=== PATIENT | male | born 1960 | race Caucasian/White ===

== ENCOUNTER 2016-09-01 16:18 | Emergency (ER) | payer OTHER ==
[2016-09-01 17:18] VITALS: BP 148/92
--- NOTE | 2016-09-01 18:33 | RAD ---
Indication: LEFT heel pain for 3 months increasing with walking downhill. Comparison: None. Technique: AP, lateral, and oblique views LEFT foot. Report: Small Achilles tendon insertion and plantar fascia origin bone spurs. Soft tissue edema at the heel fat pad. Negative for fracture or stress reaction. 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 IMPRESSION: 1. Heel fat pad soft tissue swelling and small plantar fascia origin bone spur; correlate for potential plantar fasciitis. 2. 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
--- NOTE | 2016-09-02 08:07 | UC ---
Coy Ridley Aidan, scribed for Aurelia Gutiérrez MD on 09/01/16 at 1802 . Lower Extremity/Ankle HPI - HPI Summary HPI Summary: 55 y/o male presents to the Urgent Care with a complaint of acute, intermittent episodes of hkomzndh-ia-wwkamw (8/10) left foot pain at the heel that occurs when he walks and applies pressure on his foot. His pain began roughly 3 months ago after walking down a snow-covered hill in firm boots. His pain is worse in the mornings and sometimes radiates to the arch of his foot. He denies any associated fall or injury. He is here today because the foot pain has not subsided. He works on his feet during the day, and pain is worse. No sores, no drainage, no redness. No sx contralateral foot. No fever / chills. No p/dp/w. Checks blood sugars frequently, reports most recent bs 110mg, followed by Dr. Lake. / - History of Current Complaint Chief Complaint: UCLowerExtremity Stated Complaint: FOOT PAIN Time Seen by Provider: 09/01/16 17:48 Hx Obtained From: Patient Onset/Duration: Gradual Onset, Lasting Weeks, Still Present Severity Initially: Moderate Severity Currently: Moderate Pain Intensity: 8 Pain Scale Used: 0-10 Numeric Aggravating Factor(s): Standing, Ambulation Alleviating Factor(s): Other - unknown Able to Bear Weight: Yes - Risk Factors Gout Risk Factors: Age Over 40, Male - Allergies/Home Medications Allergies/Adverse Reactions: Allergies Allergy/AdvReac Type Severity Reaction Status Date / Time No Known Allergies Allergy Verified 09/01/16 17:17 Home Medications: Home Medications Atorvastatin* [Lipitor*] mg PO 1700 09/01/16 [History] Glipizide-Metformin HCl [Glipizide/Metformin HCl 2.5-250 mg] 1 tab PO 09/01/16 [ History] Losartan TAB* [Cozaar TAB*] 25 mg PO DAILY 09/01/16 [History Confirmed 09/01/16] PMH/Surg Hx/FS Hx/Imm Hx Previously Healthy: Yes - dm Endocrine History Of: Reports: Diabetes - Type II 3 years Denies: Thyroid Disease Cardiovascular History Of: Denies: Cardiac Disorders, Hypertension Respiratory History Of: Denies: COPD, Asthma GI/ History Of: Denies: Ulcer - Surgical History Surgical History: None Surgery Procedure, Year, and Place: Denies - Family History Known Family History: Positive: Diabetes - Social History Occupation: Employed Full-time Lives: With Family Alcohol Use: Occasionally Substance Use Type: None Smoking Status (MU): Never Smoked Tobacco - Immunization History Most Recent Influenza Vaccination: fall 2015 Review of Systems Constitutional: Negative Skin: Negative Eyes: Negative ENT: Negative Respiratory: Negative Cardiovascular: Negative Gastrointestinal: Negative Genitourinary: Negative Motor: Negative Neurovascular: Negative Musculoskeletal: Arthralgia - left heel pain that radiates to the arch of the foot Neurological: Negative Psychological: Negative All Other Systems Reviewed And Are Negative: Yes Physical Exam Triage Information Reviewed: Yes Appearance: Well-Nourished Vital Signs: Initial Vital Signs Temp 97.7 F 09/01/16 17:12 Pulse 76 09/01/16 17:12 Resp 16 09/01/16 17:12 BP 148/92 09/01/16 17:12 Pulse Ox 100 09/01/16 17:12 Vital Signs Reviewed: Yes Eye Exam: Normal ENT Exam: Normal Neck exam: Normal Respiratory Exam: Normal, Other - no dyspnea, no tachypnea Cardiovascular Exam: Normal Cardiovascular: Positive: RRR, Other: - regular rate, good capillary refill, good general skin color Abdominal Exam: Normal Abdomen Description: Positive: Nontender, No Organomegaly, Soft Bowel Sounds: Positive: Present Musculoskeletal Exam: Normal, Other - tender L inf calc region, extending through midfoot. Mild swelling. No redness, no crepitus. No sores. CR < 2 sec x 5 toes. Moves toes ok. Dp 1+ Pt 2+, pulses to R foot 2+ both dp/pt. R foot w/o sores, redness, swelling. L foot particularly tender mid plantar calcaneal region. Also tender plantar distal 1st MT head region. Musculoskeletal: Positive: Strength Intact Neurological Exam: Normal, Other - non-focal, grossly intact. see foot below. Psychological Exam: Normal, Other - conversing easily and appropriately Skin Exam: Normal, Other - no visible or reported rash Diagnostics - Radiology FOOT XR Xray Interpretation: Positive (See Comments) - IMPRESSION: 1. Heel fat pad soft tissue swelling and small plantar fascia origin bone spur; correlate for potential plantar fasciitis. 2. 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 Radiology Interpretation Completed By: Radiologist Re-Evaluation - Re-Evaluation First Eval Re-Evaluation Time: 18:51 - Dr. Gutiérrez informed the patient of his positive radiology results Change: Unchanged Lower Extremity Course/Dx - Course Course Of Treatment: No new problems in CCC. Reviewed xray with pt. He has an appointment with a Jewelry Drill Operator early-mid September, but can't remember the name of the hotel general manager. CAM boot given to him here - feels better. Ultimately will benefit from podiatric specific offloading device, is possible. Work note written for this week (he works while standing on his feet). F/u Dr. Lake, per routine. Questions answered to the best of my ability. - Differential Dx/Diagnosis Provider Diagnoses: Heel spur w/ plantar fasciitis. Osteoarthrititis (see xray) Discharge - Discharge Plan Condition: Stable Disposition: HOME Prescriptions: Meloxicam [Mobic] 15 mg PO DAILY PRN #30 tab PRN Reason: Pain Patient Education Materials: Plantar Fasciitis Exercises (GEN), Plantar Fasciitis (ED), Heel Spur (ED) Forms: *Work Release Referrals: Jame Lake MD [Primary Care Provider] - Additional Instructions: Follow up with your Jewelry Drill Operator as scheduled in September. Minimize weight bearing. Follow up with Dr. Lake, per routine - call his office this week to let him know how you are doing. The documentation as recorded by the Coy dinero Aidan accurately reflects the service I personally performed and the decisions made by me, Aurelia Gutiérrez MD.
== END 2016-09-01 20:16 | disposition home or self-care (01) ==
LOC: UCEAST 16:18
DX: M77.32 Calcaneal spur, left foot (principal); M72.2 Plantar fascial fibromatosis; M19.072 Primary osteoarthritis, left ankle and foot; E11.9 Type 2 diabetes mellitus without complications; Z79.84 Long term (current) use of oral hypoglycemic drugs
CPT/HCPCS: 99211; G0463

== ENCOUNTER → 2018-11-26 06:20 | Day surgery (SDC) | payer OTHER ==
--- NOTE | 2018-11-13 14:50 | HP ---
Amended report to enter cosigning physician. PREOPERATIVE HISTORY AND PHYSICAL: DATE OF SURGERY/ADMISSION: 11/26/18 DATE OF OFFICE VISIT/ENCOUNTER: 11/06/18 ATTENDING SURGEON: Taylor Sanchez MD* (dictated by CARMELINA Prieto). PROCEDURE: Dupuytren's excision right small finger. HISTORY OF PRESENT ILLNESS: This is a 58-year-old male who complains of deformity of his right little finger that has been present for approximately 10 years. It has progressed over time. The finger is fixed in a flexed position at the MP joint. The patient denies trauma to this hand. There is no associated numbness or tingling. 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 In addition to the little finger being bothersome in his activities of daily life it also bothers him at work. He would like to have surgical intervention to help straighten the finger. PAST MEDICAL HISTORY: 1. Hypertension. 2. Diabetes. PAST SURGICAL HISTORY: None. CURRENT MEDICATIONS: 1. Aspirin 81 mg daily. 2. Fish oil 500 mg daily. 3. Glipizide ER 5 mg daily. 4. Losartan potassium 50 mg daily. 5. Multivitamin daily. ALLERGIES: No known drug allergies. FAMILY MEDICAL HISTORY: Noncontributory. 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 He denies tobacco use and recreational drug use. He drinks alcohol on rare occasions. REVIEW OF SYSTEMS: Negative for general, cephalic, cardiovascular, respiratory , GI, , other musculoskeletal, integumentary, endocrine, neurologic, and hematologic symptoms. Infectious Disease: Negative for MRSA, hepatitis C, HIV. PHYSICAL EXAMINATION GENERAL: Well-developed, well-nourished 58-year-old male in no acute distress. VITAL SIGNS: Height 5 feet 9 inches, weight 166 pounds. Pulse rate 80, blood pressure 142/92. HEENT: Normocephalic, atraumatic. Pupils are equal, round and reactive to light and accommodation. Extraocular movements are intact. NECK: Supple. No palpable lymph nodes. Throat is clear. PULMONARY: Lungs are clear to auscultation bilaterally. No wheezes, rales or rhonchi. CARDIOVASCULAR: Regular rate and rhythm. S1, S2. No murmurs, rubs or gallops. No edema. ABDOMEN: Positive bowel sounds. Soft and nontender. MUSCULOSKELETAL: On exam of his right hand, he has a flexion deformity of about 40 degrees at the MP joint of his little finger and a very slight PIP joint contracture. He has a Dupuytren's cord, which is visible and is tender to palpation. He can make a full fist. Neurovascular function is intact. SKIN: Intact. NEUROLOGIC: Alert and oriented x3. Cranial nerves II through XII are intact. Sensation is intact to light touch. IMPRESSION: Dupuytren's contracture right little finger. PLAN: The patient is scheduled to undergo a Dupuytren's excision right small finger with Dr. Sanchez on 11/26/18. He will return to the office 10 days postop for followup and possible suture removal. A prescription for [place] was e- scribed to the patient's pharmacy for postoperative pain management. CARMELINA PRIETO [id number]/[facility] #: [id number] CARLOS
[~2018-11-26 06:20] MED LIST: Buffered Lidocaine 1% SYRIN* 1 ML/SYRINGE INTRADERM ONE; Bupivacaine 0.5% SDV PF* 30ML VIAL ONE; Famotidine IV* 10 MG/ML 2 ML (20 mg) IV ONE; Famotidine IV* 10 MG/ML 2 ML (20 mg) ONE; HYDROcodone/ACETAMIN 5-325 MG* 1 TAB PO PRN; Lactated Ringers 1000 ML Bag* 1,000 ML IV SCH; Lidocaine 1% INJ* 10 MG/ML 30 ML SDV ONE; Lidocaine 2% PF * 5 ML VIAL ONE; Midazolam* 1 MG/ML 2 ML VIAL (2 MG) ONE; Naloxone* 0.4 MG/ML 1 ML VIAL IV PRN; Ondansetron INJ* 2 MG/ML VIAL IV PRN; Propofol* 10 MG/ML 20 ML BTL ONE; ceFAZolin 2 GM PREMIX in ORs 2 GM/50 ML BAG ONE; fentaNYL* 50 MCG/ML 2 ML VIAL (100 MCG VIAL) IV PRN; fentaNYL* 50 MCG/ML 2 ML VIAL (100 MCG VIAL) ONE; oxyCODONE/Acetamin 5/325 MG* TAB PO PRN
[2018-11-26 09:55] VITALS: BP 122/83
--- NOTE | 2018-11-26 14:43 | OP ---
CC: Dr. Sanchez OPERATIVE REPORT: DATE OF OPERATION: 11/26/18 DATE OF : 62 SURGEON: Taylor Sanchez MD AEROPLANE PILOT: CARMELINA Prieto ANESTHESIA: Local MAC. PRE-OP DIAGNOSIS: Right small finger Dupuytren's contracture. POST-OP DIAGNOSIS: Right small finger Dupuytren's contracture. OPERATIVE PROCEDURE: Excised Dupuytren's contracture of the right small finger. ESTIMATED BLOOD LOSS: Zero. TOURNIQUET TIME: About 30 minutes. INDICATIONS FOR PROCEDURE: Dada is a 58-year-old male who has a 20 to 30 degree MP contracture of hi s right small finger from a Dupuytren's cord. He presents for excision of the Dupuytren's cord. OPERATIVE PROCEDURE: The patient was brought to the operating room, was given a sedation anesthetic and a local infiltration of 10 cc of 1% plain lidocaine in the palm of the right hand. The skin of h is right hand and forearm was prepped and draped in the usual sterile fashion. The hand and forearm were exsanguinated and the tourniquet elevated to 250 mmHg. A Marshal incision was made over the palp able cord and dissected through the subcutaneous tissue sharply with a knife elevating the flaps back . The scissors and pickups were then used to carefully dissect the Dupuytren's tissue away from the digital neurovascular bundles and it was excised in its entirety all the way up to the PIP joint. Th e contracture was fully corrected. The digital neurovascular bundles were intact after the excision of the Dupuytren's tissue. The wound was irrigated and the skin edges reapproximated with 4-0 nylon suture. The wound was dressed with Xeroform, 4x4, Webril, and an Gustavo wrap. The patient tolerated th e procedure well and was brought to the recovery room in good condition. [id number]/[facility] #: [id number]
== END | disposition home or self-care (01) ==
LOC: OREAST 06:20
PROVIDERS: ATTEND Orthopaedic Surgery
DX: M72.0 Palmar fascial fibromatosis [Dupuytren] (principal); I10 Essential (primary) hypertension; E11.9 Type 2 diabetes mellitus without complications; Z79.84 Long term (current) use of oral hypoglycemic drugs
CPT/HCPCS: 88304; J0690; J2250; J2704; J3010; J3490

== ENCOUNTER 2019-03-10 14:29 | Emergency (ER) | payer OTHER ==
--- OUTSIDE RECORDS SUMMARY | 2019-03-10 14:34 | XMS REPORT | Continuity of Care Document ---
:1960 External Reference #:[id number] Author Name HENRY Prieto (transmitted by agent of provider Dianne Fuentes) Address [address] [place] [id number] Care Team Providers Name Role Phone Jame Lake MD - Endocrinology, Care Team Information Manager Food Diabetes & Metabolism Problems Description No Information Available Social History Type Date Description Comments Sex Unknown Tobacco Use Start: Unknown Never Smoked Cigarettes Smoking Status Reviewed: 03/05/19 Never Smoked Cigarettes ETOH Use Never used alcohol Tobacco Use Start: Unknown Patient has never smoked Recreational Drug Use Never Used Drugs Exercise Type/Frequency Exercises regularly Walking Allergies, Adverse Reactions, Alerts Description No Known Drug Allergies Medications Active Medications SIG Qnty Indications Ordering Provider Date Mills one tab by 15tabs Taylor Sanchez, 11/13/2018 5-325mg Tablets mouth every 4-6 M.D. hours as needed pain Losartan Potassium Take 1 Tablet Unknown 50mg Every Day Tablets Glipizide ER Take 1 Tablet Unknown 5mg Tablets By Mouth Every ER 24HR Day Aspirin 81 1 by mouth Unknown 81mg Tablets every day DR Fish Oil 1 by mouth Unknown 500mg Capsules every day Multivitamin Adult 1 by mouth Unknown every day Tablets Immunizations Description No Information Available Vital Signs Date Vital Result Comment 03/05/2019 8:16am Height 69 inches 5'9" Weight 162.00 lb Heart Rate 67 /min BP Systolic Sitting 148 mmHg BP Diastolic Sitting 98 mmHg Respiratory Rate 14 /min Pain Level 5 O2 % BldC Oximetry 99 % BMI (Body Mass Index) 23.9 kg/m2 02/05/2019 8:56am Height 69 inches 5'9" Weight 166.00 lb Heart Rate 86 /min BP Systolic 126 mmHg BP Diastolic 88 mmHg Body Temperature 97.1 F Pain Level 2 BMI (Body Mass Index) 24.5 kg/m2 Results Test Date Facility Test Result H/L Range Note Laboratory test 11/26/2018 [facility] Surgical SEE RESULT 1 , [address] [address] [phone] Laboratory test 11/26/2018 [facility] Point of Care 175 mg/dL High 70-100 [address] [place] [address] [phone] 1 [id number] 2 SEE RESULT BELOW Name: ANGELIQUE HAY : [address]: Taylor Sanchez MD Acct: [id number] Unit: [id number] AGE: 58 Location: [facility] Re11/26/18 SEX: M Status: [facility] SPEC: [id number] PHILLIP: 11/26/[address] [facility] [address]: Taylor Sanchez MD REQ: [id number] RECD: 11/26/18 STATUS: SOUT _ ORDERED: LEVEL 3 COMMENTS: [id number] FINAL DIAGNOSIS Right palmar fascia, excision: -- Benign fibroconnective tissue with fibrosis, compatible with clinical history Dupuytren's contracture. PRE-OPERATIVE DIAGNOSIS Dupuytren???s contracture right small finger GROSS DESCRIPTION The specimen is received in formalin labeled, Right Palmar Fascia, and consists of a 3.9 by up to 2.4 x 0.9 cm mireles-white to pink irregular rubbery fibrous tissue fragment with mild adherent yellow fat. Casting Carrier sections, one cassette. Signed by and Reported on: Diane Vázquez MD 11/27/18 1310 END OF REPORT DEPARTMENT OF PATHOLOGY, [address] [place] [address] Aldo Gaona M.D. Director [facility] # [id number] 3 Dry Cell Battery Assembler: [id number] Procedures Date Code Description Status 03/05/2019 36959 Inject/Drain Joint/Bursa Major W/O US Completed 11/26/2018 59615 Fasciotomy Palmar Open Partial Completed 11/26/2018 50433 Fasciotomy Palmar Open Partial Completed Medical Devices Description No Information Available Encounters Type Date Location Provider Dx Diagnosis Office Visit 09/18/2018 [facility] Reece.0 Palmar fascial 9:00a [facility] fibromatosis [Dupuytren] Assessments Date Code Description Provider 03/05/2019 M25.511 Pain in right shoulder HENRY Prieto 03/05/2019 Rosa72.0 Palmar fascial fibromatosis [Dupuytren] [facility], [facility] 02/05/2019 M72.0 Palmar fascial fibromatosis [Dupuytren] Marlin Kaiser, [facility] 02/05/2019 Z47.89 Encounter for other orthopedic aftercare Marlin Kaiser, [facility] 01/08/2019 M72.0 Palmar fascial fibromatosis [Dupuytren] Taylor Sanchez M.D. 01/08/2019 Z47.89 Encounter for other orthopedic aftercare Taylor Sanchez M.D. 12/09/2018 M72.0 Palmar fascial fibromatosis [Dupuytren] Taylor Sanchez M.D. 12/09/2018 Z47.89 Encounter for other orthopedic aftercare Taylor Sanchez M.D. 11/26/2018 M72.0 Palmar fascial fibromatosis [Dupuytren] Marlin Kaiser, [facility] 11/26/2018 M72.0 Palmar fascial fibromatosis [Dupuytren] Taylor Sanchez M.D. 11/06/2018 M72.0 Palmar fascial fibromatosis [Dupuytren] Marlin Kaiser, [facility] 09/18/2018 M72.0 Palmar fascial fibromatosis [Dupuytren] Taylor Sanchez M.D. Plan of Treatment 03/05/2019 - Marlin Kaiser, [facility]-CM25.511 Pain in right shoulderNew Xrays: Shoulder Right 2+ VWS, Ordered: 03/05/19New Therapy:Physical TherapyFollow up: Follow up: As idgoymL42.0 Palmar fascial fibromatosis [Dupuytren] Functional Status Description No Information Available Mental Status Description No Information Available Referrals Description No Information Available
--- OUTSIDE RECORDS SUMMARY | 2019-03-10 14:34 | XMS REPORT | Continuity of Care Document ---
:1960 External Reference #:[id number] Author Name Jame Whitt DO Address [address] [place] [id number] Care Team Providers Name Role Phone Jame Lake MD Care Team Information Associate Professor Of Chemistry [phone] Thom Hall FNP Care Team Information Associate Professor Of Chemistry [phone] Problems Active Problems Provider Date Essential hypertension Krishna Tyson MD Onset: 05/16/2012 Type 2 diabetes mellitus Krishna Tyson MD Onset: 05/16/2012 Social History Type Date Description Comments Sex Unknown Tobacco Use Start: Unknown Patient has never smoked Smoking Status Reviewed: 01/06/19 Patient has never smoked Allergies, Adverse Reactions, Alerts Active Allergies Reaction Severity Comments Date Lisinopril 05/16/2012 Medications Active Medications SIG Qnty Indications Ordering Provider Date Losartan Potassium Krishna Tyson 05/16/2012 100mg MD Tablets Glipizide ER Take 1 Tablet By Unknown 5mg Tablets Mouth Every Day ER 24HR History Medications Colyte With Flavor by mouth as 4000ml Jame Whitt DO 10/04/2018 - Packs directed 01/06/2019 240gm Solution Rec Medications Administered in Office Medication SIG Qnty Indications Ordering Provider Date Influenza Unknown 04/11/2014 Injection Immunizations CPT Code Status Date Vaccine Lot # [id number] Given 04/13/2016 Influenza Virus Vacc[place], [place] [address] Given 06/10/2015 Influenza Virus Vacc[place], [place] [address] Given 09/20/2011 Tetanus, Diphtheria Toxoids/Acellular Pertussis Vaccine 7 [place] > [id number] Given 09/14/2010 Pneumovax Vital Signs Date Vital Result Comment 10/04/2018 9:56am Height 70 inches 5'10" Weight 160.00 lb BMI (Body Mass Index) 23.0 kg/m2 05/16/2012 3:04pm Height 68 inches 5'8" Weight 159.00 lb BP Systolic 130 mmHg BP Diastolic 84 mmHg Heart Rate 72 /min BMI (Body Mass Index) 24.2 kg/m2 Results Test Date Facility Test Result H/L Range Note Laboratory test 01/16/2019 [facility] Chromogranin-A <pending> finding Laboratory test 12/20/2018 [facility] Surgical SEE RESULT 1, 2 finding Pathology Order BELOW 1 [id number] SEE RESULT BELOW Name: ANGELIQUE HAY : [address]: Jame Whitt DO Acct: [id number] Unit: [id number] AGE: 58 Location: [facility] Re12/20/18 SEX: M Status: DEP REF SPEC: [id number] PHILLIP: 12/20/18-0945 [facility] [address]: Jame Whitt DO REQ: [id number] RECD: 12/20/18 STATUS: RUTH PAGE DR: Jame Lake MD _ ORDERED: LEVEL 4/3, IMMUNO-FIRST, IMMUNO-ADDL/4, IMMUNO-QUANT COMMENTS: [id number] FINAL DIAGNOSIS 1. Colon, transverse, biopsy: -- Tubular adenoma. -- No high grade dysplasia or malignancy. 2. Colon, descending, biopsy: -- Tubular adenoma. -- No high grade dysplasia or malignancy. 3. Colon, rectum, biopsy: --Rectal well-differentiated neuroendocrine (carcinoid) tumor (2 mm) . See comment. Comment: Part 3 demonstrates an intramucosal proliferation demonstrating a solid and ribbonlike growth pattern composed of intermediate polygonal and columnar appearing cells with fine granular chromatin and no to inconspicuous nucleoli. Mild nuclear variability is noted. Mitotic figures are less than 1/10 HPF. The following immunohistochemical stains are performed with appropriate controls CD56 strong positive TTF-1 negative Pankeratin variable positive Chromogranin focal positive Synaptophysin positive Ki-67 index less than 1% CONTINUED ON NEXT PAGE DEPARTMENT OF PATHOLOGY, [address] [place] [address] Aldo Gaona M.D. Director [facility] # [id number] RUN DATE: 12/24/18 [facility] LAB LIVE PAGE 2 Patient: ANGELIQUE HAY [id number] (Continued) SPECIMEN COMMENTS (Continued) While the small small well-differentiated neuroendocrine tumor appears to be entirely excised in the plane of section on the biopsy, margins cannot be ascertained with certainty based on this limited specimen. The morphologic features and immunohistochemical staining pattern support the above rendered diagnosis. Dr. Vázquez has reviewed this case and concurs. CLINICAL HISTORY History of polyps POST-OPERATIVE DIAGNOSIS Colonoscopy to terminal ileum; good prep; biopsy polypectomy: (3) transverse , (1) descending, (1) rectal GROSS DESCRIPTION 1. The specimen is received in formalin labeled, Biopsy Transverse Colon Polyps, and consists of two yellow white irregular to polypoid soft tissue fragments measuring 0.4 x 0.2 x 0.2 cm and 0.8 x 0.4 x 0.3 cm which are entirely submitted in one cassette. 2. The specimen is received in formalin labeled, Biopsy Descending Colon Polyp, and consists of a 0.6 x 0.4 x 0.2 cm mireles-white irregular to polypoid soft tissue fragment which is entirely submitted in one cassette. 3. The specimen is received in formalin labeled, Biopsy Rectal Polyp, and consists of a 0.4 x 0.4 x 0.3 cm mireles-white to patchy red irregular to polypoid soft tissue fragment which is inked, bisected and submitted entirely in one cassette. Signed by and Reported on: Aldo Gaona MD 1540 END OF REPORT DEPARTMENT OF PATHOLOGY, [address] [place] [address] Aldo Gaona M.D. Director [facility] # [id number] Procedures Date Code Description Status 12/20/2018 71050 Moderate Sedation Services; Same Phys Intl 15 Mins; PT >= Completed 5 Years 12/20/2018 55541 Colonscopy+Biopsy Completed Medical Devices Description No Information Available Encounters Description No Information Available Assessments Date Code Description Provider 01/06/2019 C7A.026 Malignant carcinoid tumor of the rectum Jame Whitt DO 12/20/2018 Z86.010 Personal history of colonic polyps Jennifer Goodrich MD 12/20/2018 D12.3 Benign neoplasm of transverse colon Jennifer Goodrich MD 12/20/2018 D12.4 Benign neoplasm of descending colon Jennifer Goodrich MD Plan of Treatment Future Appointment(s):04/18/2019 9:30 am - Jame Whitt DO at [facility]01/06/2019 - aJme Whitt DOC7A.026 Malignant carcinoid tumor of the rectum Functional Status Description No Information Available Mental Status Description No Information Available Referrals Description No Information Available
--- OUTSIDE RECORDS SUMMARY | 2019-03-10 14:34 | XMS REPORT | Continuity of Care Document ---
:1960 External Reference #:[id number] Author Name Jame WhittDO Address [address] [place] [id number] Care Team Providers Name Role Phone Jame Lake MD Care Team Information Road Design Draftsperson [phone] Thom Hall FNP Care Team Information Road Design Draftsperson [phone] Problems Active Problems Provider Date Essential hypertension [...] With Flavor by mouth as 4000ml Jame Jose EduardoDO felecia 10/04/2018 - Packs directed 01/06/2019 240gm Solution Rec Medications Administered in Office Medication SIG Qnty Indications Ordering Provider Date Influenza Unknown 04/11/2014 Injection Immunizations CPT Code Status Date Vaccine Lot # [id number] Given 04/13/2016 Influenza Virus [place], [place] [id number] Given 06/10/2015 Influenza Virus [place], [place] [address] Given 09/20/2011 Tetanus, Diphtheria Toxoids/Acellular Pertussis Vaccine 7 Or > 160[address] Given 09/14/2010 Pneumovax Vital Signs Date Vital Result Comment 10/04/2018 9:56am Height 70 inches 5'10" Weight 160.00 lb BMI (Body Mass Index) 23.0 kg/m2 05/16/2012 3:04pm Height 68 inches 5'8" Weight 159.00 lb BP Systolic 130 mmHg BP Diastolic 84 mmHg Heart Rate 72 /min BMI (Body Mass Index) 24.2 kg/m2 Results Test Date Facility Test Result H/L Range Note Laboratory test 12/20/2018 [facility] Surgical SEE RESULT 1, 2 finding Pathology Order BELOW 1 [id number] SEE RESULT BELOW Name: ANGELIQUE HAY : [address]: Jame Whitt DO Acct: [id number] Unit: [id number] AGE: 58 Location: [facility] Re12/20/18 SEX: M Status: DEP REF SPEC: [id number] PHILLIP: 12/20/18-[address] [facility] [address]: Jame Whitt DO REQ: [id number] RECD: 12/20/18-121 STATUS: RUTH PAGE DR: Jame Lake MD _ ORDERED: LEVEL 4/3, IMMUNO-FIRST, IMMUNO-ADDL/4, IMMUNO-QUANT COMMENTS: [id number] FINAL DIAGNOSIS 1. Colon, transverse, biopsy: -- [...] CONTINUED ON NEXT PAGE DEPARTMENT OF PATHOLOGY, [address] [place] [address] Aldo Gaona M.D. Director [facility] # [id number] RUN DATE: 12/24/18 [facility] LAB LIVE PAGE 2 Patient: ANGELIQUE HAY [id number] (Continued) SPECIMEN COMMENTS (Continued) While the small [...] 1540 END OF REPORT DEPARTMENT OF PATHOLOGY, [address] [place] [address] Aldo Gaona M.D. 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
--- OUTSIDE RECORDS SUMMARY | 2019-03-10 14:34 | XMS REPORT | Continuity of Care Document ---
:1960 External Reference #:[id number] Author Name HENRY Prieto (transmitted by agent of provider Dianne Fuentes) Address [address] [place] [phone] Care Team Providers Name Role Phone Jame Lake MD - Endocrinology, Care Team Information Capsule Maker [phone] Diabetes & Metabolism Problems Description No Information Available Social History Type Date Description Comments Sex Unknown Tobacco Use Start: Unknown Never Smoked Cigarettes Smoking Status Reviewed: 02/05/19 Never Smoked Cigarettes ETOH Use Never used alcohol Tobacco Use Start: Unknown Patient has never smoked Recreational Drug Use Never Used Drugs Exercise Type/Frequency Exercises regularly Walking Allergies, Adverse Reactions, Alerts Description No Known Drug Allergies Medications Active Medications SIG Qnty Indications Ordering Provider Date [place] one tab by 15tabs Taylor Sanchez, 11/13/2018 [...] Available Vital Signs Date Vital Result Comment 02/05/2019 8:56am Height 69 inches 5'9" Weight 166.00 lb Heart Rate 86 /min BP Systolic 126 mmHg BP Diastolic 88 mmHg Body Temperature 97.1 F Pain Level 2 BMI (Body Mass Index) 24.5 kg/m2 01/08/2019 9:00am Height 69 inches 5'9" Weight 166.00 lb Heart Rate 68 /min BP Systolic 124 mmHg BP Diastolic 80 mmHg Body Temperature 96.8 F Pain Level 6 BMI (Body Mass Index) 24.5 kg/m2 Results Test Date Facility Test Result H/L Range Note Laboratory test 11/26/2018 [facility] Surgical SEE RESULT 1 , [address] [place] [address] [phone] Laboratory test 11/26/2018 [facility] Point of Care 175 mg/dL High 70-100 [address] [place] [address] [phone] 1 [id number] 2 SEE RESULT BELOW Name: ANGELIQUE HAY : [address]: Taylor Sanchez MD Acct: [id number] Unit: [id number] AGE: 58 Location: [facility] Re11/26/18 SEX: M Status: REG [facility] [place] SPEC: [id number] PHILLIP: 11/26/[address]: Taylor Sanchez MD REQ: [id number] RECD: 11/26/18 STATUS: SOUT _ ORDERED: LEVEL 3 COMMENTS: [id number] FINAL DIAGNOSIS Right palmar fascia, excision: -- Benign fibroconnective tissue with fibrosis, compatible with clinical history Dupuytren's contracture. PRE-OPERATIVE DIAGNOSIS Dupuytren???s contracture right small finger GROSS DESCRIPTION The specimen is received in formalin labeled, Right Palmar Fascia, and consists of a 3.9 by up to 2.4 x 0.9 cm mireles-white to pink irregular rubbery fibrous tissue fragment with mild adherent yellow fat. Talent Acquisition Sourcer sections, one cassette. Signed by and Reported on: Diane Vázquez MD 11/27/18 1310 END OF REPORT DEPARTMENT OF PATHOLOGY, [address] [place] [address] Aldo Gaona M.D. Director [place] # [id number] [place] Inspector: [id number] Procedures Date Code Description Status 11/26/2018 75961 Fasciotomy Palmar Open Partial Completed 11/26/2018 37883 Fasciotomy Palmar Open Partial Completed Medical Devices Description No Information Available Encounters Type Date Location Provider Dx Diagnosis Office Visit 09/18/2018 [facility] Reece Palmar fascial 9:[facility] fibromatosis [Dupuytren] Assessments Date Code Description Provider 02/05/2019 Josh Palmar fascial fibromatosis [Dupuytren] Marlin Kaiser RPA -Sheeba 01/08/2019 Josh Palmar fascial fibromatosis [Dupuytren] Taylor Sanchez M.D. 01/08/2019 Z47.89 Encounter for other orthopedic aftercare Taylor Sanchez M.D. 12/09/2018 M72.0 Palmar fascial fibromatosis [Dupuytren] Taylor Sanchez M.D. 12/09/2018 Z47.89 Encounter for other orthopedic aftercare Taylor Sanchez M.D. 11/26/2018 M72.0 Palmar fascial fibromatosis [Dupuytren] TAYLER Prieto 11/26/2018 M72.0 Palmar fascial fibromatosis [Dupuytren] Taylor Sanchez M.D. 11/06/2018 M72.0 Palmar fascial fibromatosis [Dupuytren] TAYLER Prieto 09/18/2018 M72.0 Palmar fascial fibromatosis [Dupuytren] Taylor Sanchez M.D. Plan of Treatment Future Appointment(s):03/05/2019 8:15 am [facility] - KEENA Prieto72.0 Palmar fascial fibromatosis [Dupuytren]New Therapy:Physical TherapyFollow up:Follow up: 4 weeks Functional Status Description No Information Available Mental Status Description No Information Available Referrals Description No Information Available
[2019-03-10 15:01] VITALS: BP 139/82
--- NOTE | 2019-03-10 15:08 | UC ---
Shoulder Pain HPI - HPI Summary HPI Summary: 58 yo male presents with RIGHT shoulder pain. He tells me that he has had right shoulder pain intermittently for many years, but on 03/07 he was at work ([employer] ) and lifted a trash can over his head to throw the trash into the dumpster - felt a pull in his right shoulder. Since that time has had pain and decreased ROM. He is right handed. He has been taking ibuprofen for discomfort with good relief. Denies numbness or tingling. - History of Current Complaint Chief Complaint: UCUpperExtremity Stated Complaint: R SHOULDER PAIN Time Seen by Provider: 03/10/19 15:07 Hx Obtained From: Patient Onset/Duration: Gradual Onset Severity Initially: Mild Severity Currently: Mild Pain Intensity: 4 Pain Scale Used: 0-10 Numeric - Allergies/Home Medications Allergies/Adverse Reactions: Allergies Allergy/AdvReac Type Severity Reaction Status Date / Time No Known Allergies Allergy Verified 03/10/19 15:01 Home Medications: Home Medications Ascorbic Acid TAB* [Vitamin C TAB*] 500 mg PO DAILY 03/10/19 [History Confirmed 03/10/19] PMH/Surg Hx/FS Hx/Imm Hx Endocrine History: Diabetes Cardiovascular History: Hypertension - Surgical History Surgical History: None Surgery Procedure, Year, and Place: Denies - Family History Known Family History: Positive: Diabetes - Social History Lives: With Family Alcohol Use: Occasionally Alcohol Amount: 1-2 BEERS EVERY FEW MONTHS Substance Use Type: None Smoking Status (MU): Never Smoked Tobacco Have You Smoked in the Last Year: No - Immunization History Most Recent Influenza Vaccination: fall 2015 Review of Systems All Other Systems Reviewed And Are Negative: No Constitutional: Positive: Negative Skin: Positive: Negative Respiratory: Positive: Negative Cardiovascular: Positive: Negative Neurovascular: Positive: Negative Musculoskeletal: Positive: Other: - Right shoulder pain Neurological: Positive: Negative Psychological: Positive: Negative Physical Exam - Summary Physical Exam Summary: GENERAL: NAD. WDWN. No pain distress. SKIN: No rashes, sores, lesions, or open wounds. CHEST: No accessory muscle use. Breathing comfortably and in no distress. CV: Pulses intact radial and ulnar. Cap refill <2seconds MSK: RIGHT SHOULDER: NTTP. Pain at ~120deg flexion. Strength 5/5. No edema or obvious bony deformities. Positive apley's and neer. Negative empty can, gomes -evonne, stark, and yergason tests. NEURO: Alert. Sensations intact C4-T1 b/l PSYCH: Age appropriate behavior. Triage Information Reviewed: Yes Vital Signs: Initial Vital Signs Temp 97.8 F 03/10/19 14:54 Pulse 82 03/10/19 14:54 Resp 16 03/10/19 14:54 BP 139/82 03/10/19 14:54 Pulse Ox 100 03/10/19 14:54 Vital Signs Reviewed: Yes Diagnostics - Radiology Shoulder Radiology Interpretation Completed By: Radiologist Summary of Radiographic Findings: REPORT AND IMPRESSION: #. Negative for fracture. #. Normal acromioclavicular and glenohumeral joint alignment. #. Osteoarthritis: Mild osteophytosis at the acromioclavicular and glenohumeral joints. Negative for significant glenohumeral joint space narrowing. Small inferior acromial bone spur. #. Negative for calcific tendinopathy or abnormal soft tissue contour. Shoulder Course/Dx - Course Course Of Treatment: XR as above. Suspect RTC injury vs shoulder sprain. Advised to continue ibuprofen as directed. Will start him with physical therapy and have him f/u if Orthopedics if his symptoms do not improve. - Differential Dx/Diagnosis Provider Diagnosis: Right shoulder pain Discharge ED - Sign-Out/Discharge Documenting (check all that apply): Patient Departure All imaging exams completed and their final reports reviewed: Yes - Discharge Plan Condition: Stable Disposition: HOME Patient Education Materials: Rotator Cuff Tendinitis (ED) Referrals: Jame Lake MD [Primary Care Provider] - Jean Claude Maradiaga MD [Medical Doctor] - If Needed Additional Instructions: If you develop a fever, shortness of breath, chest pain, new or worsening symptoms - please call your PCP or go to the ED immediately. Your blood pressure was high at todays visit. Please see your primary provider within 4 weeks for recheck and re-evaluation. 1) Rest and ice your shoulder to decrease pain 2) I recommend that you schedule an appointment with Physical therapy for further treatment of your shoulder 3) If your symptoms have not improved with rest and physical therapy within 2 weeks - please call Orthopedics at the number below to schedule an appointment for a recheck - Billing Disposition and Condition Condition: STABLE Disposition: Home
== END 2019-03-10 15:44 | disposition home or self-care (01) ==
LOC: UCEAST 14:29
DX: M25.511 Pain in right shoulder (principal); E11.9 Type 2 diabetes mellitus without complications; M19.011 Primary osteoarthritis, right shoulder; M75.81 Other shoulder lesions, right shoulder
CPT/HCPCS: 99211; G0463